=== PATIENT | female | born 1995 | race Caucasian/White ===

== ENCOUNTER 2018-11-15 08:07 | Emergency (ER) | payer BC ==
[2018-11-15 08:22] VITALS: BMI 24.7
[2018-11-15 08:27] VITALS: RESP 18; O2SAT 98
--- NOTE | 2018-11-15 08:31 | C.PDOC ---
History Of Present Illness 23 y/o female with hx of kidney stones otherwise well presents to the ER c/o mid and RUQ abdominal pain for x6 days. Associated sx includes vomiting, cough, some chills, sore throat and felt febrile (not documented). Pt denies headache and nausea. Time Seen by Provider: 11/15/18 08:18 Chief Complaint (Nursing): Abdominal Pain History Per: Patient History/Exam Limitations: no limitations Onset/Duration Of Symptoms: Days (x6) Current Symptoms Are (Timing): Still Present Past Medical History Reviewed: Historical Data, Nursing Documentation, Vital Signs Vital Signs: Last Vital Signs Temp 98.2 F 11/15/18 08:22 Pulse 89 11/15/18 08:22 Resp 18 11/15/18 08:22 BP 125/81 11/15/18 08:22 Pulse Ox 98 11/15/18 08:22 - Medical History PMH: Hypercholesterolemia, Kidney Stones, Chronic Kidney Disease Family History: States: No Known Family Hx - Social History Hx Tobacco Use: No Hx Alcohol Use: No Hx Substance Use: No - Immunization History Hx Tetanus Toxoid Vaccination: No Hx Influenza Vaccination: No Hx Pneumococcal Vaccination: No Review Of Systems Except As Marked, All Systems Reviewed And Found Negative. Constitutional: Positive for: Fever (felt, not documented ), Chills (some) ENT: Positive for: Throat Pain Respiratory: Positive for: Cough Gastrointestinal: Positive for: Vomiting, Abdominal Pain (mid and RUQ). Negative for: Nausea Neurological: Negative for: Headache Physical Exam - Physical Exam Appears: Well, Non-toxic, No Acute Distress Skin: Warm, Dry, No Rash Head: Normacephalic Eye(s): bilateral: Normal Inspection Oral Mucosa: Moist Chest: Symmetrical Cardiovascular: Rhythm Regular Respiratory: Normal Breath Sounds Gastrointestinal/Abdominal: Soft, Tenderness (RUQ and mid ), No Guarding, No Rebound Back: No CVA Tenderness Extremity: Normal ROM (x4) Neurological/Psych: Oriented x3, Normal Speech ED Course And Treatment - Laboratory Results Result Diagrams: 11/15/18 08:43 11/15/18 08:32 O2 Sat by Pulse Oximetry: 98 (RA) Pulse Ox Interpretation: Normal Medical Decision Making Medical Decision Making: Impression: flu Plans: -- chem labs -- blood work -- -- maalox -- pepcid -- IV fluids -- Zofran -- HCG -- UA Update: Pt is feeling better after hydration. Ketone was found in urine. Pt will be given D5 1/2 NS as well as PO challenge and will be discharged after. Disposition - Disposition Referrals: [facility] [Outside] Disposition: HOME/ ROUTINE Disposition Time: 09:51 Condition: STABLE Additional Instructions: Take Motrin or Tylenol for fever. Take Zofram for nausea. Get plenty rest. Follow up with your doctor, or our clinic. Prescriptions: Benzonatate [Tessalon Perles] 200 mg PO TID #30 sgl Ondansetron ODT [Zofran ODT] 1 odt PO BID PRN #6 odt PRN Reason: Nausea/Vomiting Instructions: Viral Syndrome (DC) Forms: [facility] (Kazakh), Work Excuse, General Discharge Instructions - POA Present On Arrival: None - Clinical Impression Clinical Impression: Viral syndrome - Scribe Statement The provider has reviewed the documentation as recorded by the Scribe Ha Do Provider Attestation: All medical record entries made by the Scribe were at my direction and personally dictated by me. I have reviewed the chart and agree that the record accurately reflects my personal performance of the history, physical exam, medical decision making, and the department course for this patient. I have also personally directed, reviewed, and agree with the discharge instructions and disposition.
[2018-11-15] MEDS ORDERED: Sodium Chloride 0.9% 1,000 ML IV ONE (08:32)
[2018-11-15] MEDS ORDERED: Belladonna-Phenobarbital PO STA (08:32)
[2018-11-15] MEDS ORDERED: Aluminum Hydroxide/Magnesium Hydroxide Susp (30 mL) PO STA (08:32)
[2018-11-15] MEDS ORDERED: Aluminum Hydroxide/Magnesium Hydroxide Susp (30 mL) ONE (08:41)
[2018-11-15 08:42] LABS: BASO % 0.3 % (0.0-2.0); EOS % 0.2 % (0.0-4.0); HEMOGLOBIN 14.7 g/dL (11.0-16.0); LYMPH # 2.1 K/uL (1.0-4.3); LYMPH % 22.5 % (20.0-40.0); MEAN CELL VOLUME 85.6 fL (81.0-99.0); MEAN CORPUSCULAR HEMOGLOBIN 29.3 pg (27.0-31.0); MEAN CORPUSCULAR HGB CONC 34.3 g/dL (33.0-37.0); MEAN PLATELET VOLUME 8.4 fL (7.2-11.7); MONO # 0.5 K/uL (0.0-0.8); MONO % 5.2 % (0.0-10.0); NEUT # 6.9 K/uL (1.8-7.0); NEUT % 71.8 % (50.0-75.0); RBC 5.02 Mil/uL (3.80-5.20); RED CELL DISTRIBUTION WIDTH 12.8 % (11.5-14.5); WHITE BLOOD COUNT 9.5 K/uL (4.8-10.8)
[2018-11-15] MEDS ORDERED: Sodium Chloride 0.9% 1,000 ML ONE (08:42)
[2018-11-15 08:46] LABS: HCG,QUALITATIVE URINE NEGATIVE (NEGATIVE)
[2018-11-15] MEDS ORDERED: Belladonna-Phenobarbital ONE (08:53)
[2018-11-15 08:54] LABS: SQUAMOUS EPITHIAL 9 /hpf (0-5); URINE BACTERIA RARE (<OCC); URINE BILIRUBIN NEGATIVE (NEGATIVE); URINE BLOOD NEGATIVE (NEGATIVE); URINE CLARITY Clear (Clear); URINE COLOR Yellow (YELLOW); URINE GLUCOSE (UA) NORMAL (Normal); URINE LEUKOCYTE ESTERASE TRACE Leu/uL (Negative); URINE PROTEIN NEGATIVE (NEGATIVE)
[2018-11-15 09:00] LABS: ALB/GLOB RATIO 1.4 (1.0-2.1); ALBUMIN 4.8 g/dL (3.5-5.0); ALT/SGPT 60 U/L (9-52); AST/SGOT 54 U/L (14-36); BLOOD UREA NITROGEN 9 mg/dL (7-17); CALCIUM 8.6 mg/dl (8.6-10.4); GFR NON-AFRICAN AMERICAN > 60; LIPASE 156 U/L (23-300)
[2018-11-15] MEDS ORDERED: Dextrose 5%/0.45% NS 1,000 ML IV ONE ×2 (09:50→10:01)
[2018-11-15 10:32] VITALS: BP 117/73; PULSE 80; TEMP 98.4
== END 2018-11-15 10:41 | disposition home or self-care (01) ==
LOC: C.ER 08:07
DX: B34.9 Viral infection, unspecified (principal)
CPT/HCPCS: 80053; 81001; 83690; 84703; 85025; 96361; 96374; 96375; 99285; J2405; J7030; J7042